=== PATIENT | female | born 1960 | race Native Hawaiian/Other Pacific Islander ===

== ENCOUNTER 2017-07-29 11:19 | Emergency (ER) | payer OTHER ==
[2017-07-29 12:00] VITALS: BP 184/99
--- NOTE | 2017-07-29 12:43 | ED Physician Documentation ---
PD HPI SKIN - Stated complaint Stated Complaint: RASH ON FACE - Chief complaint Chief Complaint: Wound - History obtained from History obtained from: Patient - History of Present Illness Timing - onset: Other (Type II diabetic with several days of mostly itchy and slightly painful rash that is centered over the left upper back. She has never had this before.) Review of Systems Constitutional: denies: Fever, Chills Nose: denies: Rhinorrhea / runny nose, Congestion Cardiac: reports: Reviewed and negative Respiratory: reports: Reviewed and negative PD PAST MEDICAL HISTORY - Present Medications Home Medications: Ambulatory Orders Medication Instructions Recorded Confirmed Acyclovir 800 mg PO 5XD 10 Days tablet 07/29/17 Atorvastatin Calcium 20 mg PO DAILY 07/29/17 07/29/17 Cephalexin [Keflex] 500 mg PO QID #40 capsule 07/29/17 Ferrous Sulfate 324 mg PO DAILY 07/29/17 07/29/17 Hydrochlorothiazide 12.5 mg PO DAILY 07/29/17 07/29/17 Lisinopril 20 mg PO DAILY 07/29/17 07/29/17 Sitagliptin Phos/Metformin HCl 1 tab PO DAILY 07/29/17 07/29/17 [Janumet 50-1,000 mg Tablet] hydrOXYzine PAMOATE [Vistaril] 25 mg PO Q6H PRN #15 capsule 07/29/17 - Allergies Allergies/Adverse Reactions: Allergies Allergy/AdvReac Type Severity Reaction Status Date / Time No Known Drug Allergies Allergy Verified 07/29/17 12:00 PD ED PE NORMAL - Vitals Vital signs reviewed: Yes - General General: Alert and oriented X 3, No acute distress - HEENT HEENT: PERRL, EOMI - Derm Derm: Other (She has what appears to be superinfected shingles over the superior part of the left scapula radiating down onto the top of the deltoid a bit and the neck. There is a more nonspecific rash on the face that looks like eczema.) - Neuro Neuro: Alert and oriented X 3, Normal speech Results - Vitals Vitals: Vital Signs - 24 hr 07/29/17 11:55 Temperature 36.7 C Heart Rate 95 Respiratory 18 Rate Blood Pressure 184/99 H O2 Saturation 95 Oxygen O2 Source Room air PD MEDICAL DECISION MAKING - ED course ED course: She has what appears to be superinfected shingles. Steroids are held given the diabetes. She does not need any pain medicine she says. Departure - Departure Disposition: 01 Home, Self Care Clinical Impression: Zoster Qualifiers: Herpes zoster complications: without complications Qualified Code(s): B02.9 - Zoster without complications Condition: Good Record reviewed to determine appropriate education?: Yes Instructions: ED Shingles Prescriptions: Acyclovir 800 mg PO 5XD 10 Days tablet Cephalexin [Keflex] 500 mg PO QID #40 capsule hydrOXYzine PAMOATE [Vistaril] 25 mg PO Q6H PRN #15 capsule PRN Reason: Itching Comments: Call your doctor to arrange a follow-up appointment, make the next available appointment. In the interim, return anytime if worse or if new symptoms develop. Your blood pressure was elevated today on check into the emergency department. This does not mean that you have hypertension, it is a common phenomenon to come to the emergency department and have elevated blood pressure. I recommend that you see your primary care physician within the week to have it rechecked when you are feeling better.
== END 2017-07-29 13:58 | disposition home or self-care (01) ==
LOC: ED 11:19
DX: B02.9 Zoster without complications (principal); R03.0 Elevated blood-pressure reading, without diagnosis of hypertension; E11.9 Type 2 diabetes mellitus without complications
CPT/HCPCS: 99283

== ENCOUNTER 2024-02-06 06:27 | Day surgery (SDC) | payer OTHER ==
[2024-02-06] MEDS: LACTATED RINGERS 1,000 ML IV ONE ×2 (06:37→08:32)
[2024-02-06] MEDS: PROPARACAINE 0.5% OPHTH DROPS 15 ML ONE (06:43)
[2024-02-06] MEDS: KETOROLAC 0.45% OPHTH DROPS ONE (06:43)
[2024-02-06] MEDS: PHENYLEPHRINE 2.5% OPHTH 2 ML DROPS ONE (06:44)
[2024-02-06] MEDS: CYCLOPENTOLATE 1% OPHTH DROPS 2 ML ONE (06:44)
[2024-02-06] MEDS ORDERED: MIDAZOLAM 2 MG/2 ML VIAL ONE (07:33)
[2024-02-06] MEDS ORDERED: TRIAMCIN/MOXIFLOX OPHTHALMIC 0.6 ML VIAL IO ONE (07:37)
[2024-02-06] MEDS ORDERED: BRIMONIDINE 0.2% OPHTH DROPS 5 ML ONE (07:37)
[2024-02-06] MEDS ORDERED: EPINEPHrine 1 MG/ML AMP ONE (07:37)
[2024-02-06] MEDS ORDERED: TIMOLOL 0.5% OPHTH DROPS ONE (07:37)
[2024-02-06] MEDS ORDERED: BSS/LIDOCAINE/EPINEPHRINE 1 ML VIAL ONE (07:38)
--- NOTE | 2024-02-06 07:54 | ANESTHESIA ---
Pre-Anesthesia VS, & Labs - Diagnosis L cataract - Procedure L phacoIOL Vital Signs: Temp Pulse Resp BP Pulse Ox O2 Flow Rate 36.1 C L 106 H 20 139/82 H 100 02/06/24 06:45 02/06/24 06:45 02/06/24 06:45 02/06/24 06:45 02/06/24 06:45 Height: 4 ft 11 in Weight (kg): 47.9 kg Body Mass Index: 21.3 BMI Classification: Normal - NPO >8 hours - Is Patient ?: No - Lab Results Current Lab Results: Laboratory Tests 02/06/24 07:04: POC Whole Bld Glucose 148 H Home Medications and Allergies Home Medications: Ambulatory Orders Apixaban [Eliquis] 1 tab PO DAILY 02/06/24 Aspirin EC [Ecotrin] 1 tab PO DAILY 02/06/24 Dulaglutide [Trulicity] 1 applic SQ OAW 02/06/24 amLODIPine [Norvasc] 10 mg PO DAILY 02/06/24 diltiaZEM [Cardizem] 1 tab PO BID 02/06/24 metFORMIN [Glucophage] 1,000 mg PO BIDWM 02/06/24 Atorvastatin Calcium 20 mg PO DAILY 07/29/17 lisinopriL [Lisinopril] 20 mg PO DAILY 07/29/17 Apixaban [Eliquis] 1 tab PO DAILY 02/06/24 Aspirin EC [Ecotrin] 1 tab PO DAILY 02/06/24 Dulaglutide [Trulicity] 1 applic SQ OAW 02/06/24 amLODIPine [Norvasc] 10 mg PO DAILY 02/06/24 diltiaZEM [Cardizem] 1 tab PO BID 02/06/24 metFORMIN [Glucophage] 1,000 mg PO BIDWM 02/06/24 Allergies/Adverse Reactions: Allergies Allergy/AdvReac Type Severity Reaction Status Date / Time No Known Drug Allergies Allergy Verified 07/29/17 12:00 Anes History & Medical History - Anesthetic History Anesthesia Complications: reports: No previous complications Family history of Anesthesia Complications: Denies Family history of Malignant Hyperthermia: Denies - Medical History Cardiovascular: reports: Hypertension, Atrial fibrillation Pulmonary: reports: None Gastrointestinal: reports: None Urinary: reports: None Musculoskeletal: reports: None Endocrine/Autoimmune: reports: Type 2 diabetes Skin: reports: None Smoking Status: Never smoker Psychosocial: reports: No issues indicated History of Cancer?: No - Surgical History Gynecologic: reports: section Exam General: Alert, Oriented x3, Cooperative Dental: WNL Mouth Openin Fingerbreadth Neck Mobility: Normal Mallampati classification: I Thyromental Distance: 4-6 cm Respiratory: Lungs clear Cardiovascular: Regular rate Plan Anesthesia Type: MAC Consent for Procedure(s) Verified and Reviewed: Yes Code Status: Attempt Resuscitation ASA classification: 3-Severe systemic disease Is this case an emergency?: No
[2024-02-06] MEDS ORDERED: fentaNYL 100 MCG/2 ML VIAL ONE (08:15)
[2024-02-06] MEDS: TIMOLOL 0.5% OPHTH DROPS OPTH ONE (08:24)
[2024-02-06] MEDS: EPINEPHrine 1 MG/ML AMP IR ONE (08:24)
[2024-02-06] MEDS: BRIMONIDINE 0.2% OPHTH DROPS 5 ML OPTH ONE (08:24)
[2024-02-06] MEDS: PROPARACAINE 0.5% OPHTH DROPS 15 ML EACHEYE ONE (08:25)
[2024-02-06] MEDS: BSS/LIDOCAINE/EPINEPHRINE 1 ML SYRINGE IO ONE (08:25)
[2024-02-06] MEDS: TRIAMCIN/MOXIFLOX OPHTHALMIC 0.6 ML VIAL IO ONE (08:25)
[2024-02-06] MEDS: VANCOMYCIN OPHTH (TOPICAL) 10 MG/ML SYRINGE TOP ONE (08:26)
--- NOTE | 2024-02-06 08:39 | OPERATIVE REPORT ---
Operative Report - Other Other Information/Narrative: Date of Surgery: 02/06/24 Preop Dx: Visually significant cataract left eye. This was the first cataract surgery. Postop Dx: Same Procedure: Phacoemulsification with posterior chamber intraocular lens implant left eye Surgeon: Dr. Jose Maria Pelaez Anesthesia: Monitored anesthesia care Complications: None Operative Indications: This is a 63-year-old F with progressive vision loss in the left eye due to 2+ nuclear sclerotic, 2+ posterior subcapsular, and vacuolar cataract. Best corrected visual acuity was 20/30 with glare to 20/300 vision in the left eye. Indications for surgery were: - Difficulty seeing street signs - Difficulty driving in low light or at night - Difficulty driving at night because of headlights from other vehicles - Difficulty with glare or bright lights in any situation The patient was consented at length concerning the risks and benefits of cataract surgery after which the patient expressed a desire to proceed with surgery. Operative Procedure: The patient was taken into OR#3 and placed under monitored anesthesia care. A surgical time-out was conducted confirming correct patient, correct procedure, and correct surgical site. The patient was given topical anesthesia and then prepped and draped in the usual sterile fashion. The eye was entered at the 6 and 3 oclock positions. Intracameral Shugarcaine was injected into the anterior chamber followed by a dispersive viscoelastic. A continuous-tear curvilinear capsulorhexis was performed. The nucleus was hydrodissected and phacoemulsified. The cortex was evacuated using automated infusion and aspiration. A cohesive viscoelastic was injected into the capsular bag and a 18.5 diopter intraocular lens was inserted into the bag. Infusion and aspiration were used to evacuate the viscoelastic materials from the eye. The wounds were hydrated and the eye inflated to physiologic pressure using balanced salt solution. Approximately 0.25ml of a mixture of triamcinolone and moxifloxacin was injected trans-sclerally into the vitreous in the inferotemporal quadrant using a 30 gauge cannula. An additional 0.25ml of a mixture of triamcinolone and moxifloxacin was injected subconjunctivally in the superior quadrant for infection and inflammation prophylaxis. Wound integrity was checked with Weck-Stephanie sponges. The patient was taken from the operating room in good condition and given post-op instructions.
[2024-02-06 09:02] VITALS: BP 130/78; O2SAT 99
--- NOTE | 2024-02-06 11:25 | ANESTHESIA POST OP EVALUATION ---
Anesthesia Post Eval - Post Anesthesia Eval Vitals: Last Vital Signs Temp 36.6 C 02/06/24 08:45 Pulse 95 02/06/24 08:45 Resp 16 02/06/24 08:45 BP 130/78 02/06/24 08:45 Pulse Ox 99 02/06/24 08:45 O2 Flow Rate CV Function Including HR & BP: Stable Pain Control: Satisfactory Nausea & Vomiting: Negative Mental Status: Baseline Respiratory Status: Airway Patent Hydration Status: Satisfactory Anesthesia Complications: None
== END 2024-02-06 06:28 | disposition home or self-care (01) ==
LOC: SDS 06:27
PROVIDERS: ATTEND Ophthalmology
DX: E11.36 Type 2 diabetes mellitus with diabetic cataract (principal); H25.812 Combined forms of age-related cataract, left eye; I48.91 Unspecified atrial fibrillation; Z79.85 Long-term (current) use of injectable non-insulin antidiabetic drugs; Z79.84 Long term (current) use of oral hypoglycemic drugs; Z79.01 Long term (current) use of anticoagulants
CPT/HCPCS: 66984; A9270; J3490; J7120

== ENCOUNTER 2024-04-02 07:37 | Day surgery (SDC) | payer OTHER ==
[~2024-04-02 07:37] MED LIST: CYCLOPENTOLATE 1% OPHTH DROPS 2 ML ONE; KETOROLAC TROMETHAMINE 0.5% OPHTH DROPS 5 ML ONE; PHENYLEPHRINE 2.5% OPHTH 2 ML DROPS ONE; PROPARACAINE 0.5% OPHTH DROPS 15 ML ONE
[2024-04-02] MEDS: PROPARACAINE 0.5% OPHTH DROPS 15 ML RIGHTEYE ONE ×2 (07:49→09:28)
[2024-04-02] MEDS: KETOROLAC TROMETHAMINE 0.5% OPHTH DROPS 5 ML RIGHTEYE ONE (07:49)
[2024-04-02] MEDS: CYCLOPENTOLATE 1% OPHTH DROPS 2 ML RIGHTEYE ONE (07:49)
[2024-04-02] MEDS: PHENYLEPHRINE 2.5% OPHTH 2 ML DROPS RIGHTEYE ONE (07:49)
[2024-04-02] MEDS: LACTATED RINGERS 1,000 ML IV ONE ×2 (08:10→10:15)
[2024-04-02] MEDS ORDERED: BRIMONIDINE 0.2% OPHTH DROPS 5 ML ONE (09:04)
[2024-04-02] MEDS ORDERED: TRIAMCIN/MOXIFLOX OPHTHALMIC 0.6 ML VIAL IO ONE (09:04)
[2024-04-02] MEDS ORDERED: EPINEPHrine 1 MG/ML AMP ONE (09:04)
[2024-04-02] MEDS ORDERED: TIMOLOL 0.5% OPHTH DROPS ONE (09:05)
[2024-04-02] MEDS ORDERED: BSS/LIDOCAINE/EPINEPHRINE 1 ML VIAL ONE (09:05)
--- NOTE | 2024-04-02 09:14 | ANESTHESIA ---
Pre-Anesthesia VS, & Labs - Diagnosis R cataract - Procedure R PhacoIOL Vital Signs: Temp Pulse Resp BP Pulse Ox O2 Flow Rate 36.2 C L 114 H 21 154/95 H 100 04/02/24 07:45 04/02/24 07:45 04/02/24 07:45 04/02/24 07:45 04/02/24 07:45 Height: 4 ft 11 in Weight (kg): 49.6 kg Body Mass Index: 22.1 BMI Classification: Normal - NPO >8 hours - Is Patient ?: No - Lab Results Current Lab Results: Laboratory Tests 04/02/24 08:04: POC Whole Bld Glucose 158 H Home Medications and Allergies Atorvastatin Calcium 20 mg PO DAILY 07/29/17 lisinopriL [Lisinopril] 20 mg PO DAILY 07/29/17 Apixaban [Eliquis] 1 tab PO DAILY 02/06/24 Aspirin EC [Ecotrin] 1 tab PO DAILY 02/06/24 Dulaglutide [Trulicity] 1 applic SQ OAW 02/06/24 amLODIPine [Norvasc] 10 mg PO DAILY 02/06/24 diltiaZEM [Cardizem] 1 tab PO BID 02/06/24 metFORMIN [Glucophage] 1,000 mg PO BIDWM 02/06/24 Allergies/Adverse Reactions: Allergies Allergy/AdvReac Type Severity Reaction Status Date / Time No Known Drug Allergies Allergy Verified 07/29/17 12:00 Anes History & Medical History - Anesthetic History Anesthesia Complications: reports: No previous complications Family history of Anesthesia Complications: Denies Family history of Malignant Hyperthermia: Denies - Medical History Cardiovascular: reports: Hypertension, Atrial fibrillation Pulmonary: reports: None Gastrointestinal: reports: None Urinary: reports: None Musculoskeletal: reports: None Endocrine/Autoimmune: reports: Type 2 diabetes Skin: reports: None Smoking Status: Never smoker - Surgical History Gynecologic: reports: section Exam General: Alert, Oriented x3, Cooperative Dental: WNL Mouth Openin Fingerbreadth Neck Mobility: Normal Mallampati classification: II Thyromental Distance: 4-6 cm Respiratory: Lungs clear Cardiovascular: Other (A fib) Plan Anesthesia Type: MAC Consent for Procedure(s) Verified and Reviewed: Yes Code Status: Attempt Resuscitation ASA classification: 2-Mild systemic disease Is this case an emergency?: No
[2024-04-02] MEDS ORDERED: MIDAZOLAM 2 MG/2 ML VIAL ONE (09:16)
[2024-04-02] MEDS ORDERED: fentaNYL 100 MCG/2 ML VIAL ONE (09:16)
[2024-04-02] MEDS: BRIMONIDINE 0.2% OPHTH DROPS 5 ML OPTH ONE (09:27)
[2024-04-02] MEDS: TRIAMCIN/MOXIFLOX OPHTHALMIC 0.6 ML VIAL IO ONE (09:28)
[2024-04-02] MEDS: TIMOLOL 0.5% OPHTH DROPS OPTH ONE (09:28)
[2024-04-02] MEDS: VANCOMYCIN OPHTH (TOPICAL) 10 MG/ML SYRINGE TOP ONE (09:28)
[2024-04-02] MEDS: BSS/LIDOCAINE/EPINEPHRINE 1 ML SYRINGE IO ONE (09:28)
[2024-04-02] MEDS: EPINEPHrine 1 MG/ML AMP IR ONE (09:28)
--- NOTE | 2024-04-02 10:02 | OPERATIVE REPORT ---
Operative Report - Other Other Information/Narrative: Date of Surgery: 04/02/24 Preop Dx: Visually significant cataract right eye. Cataract surgery was performed in the left eye on [id number]. Postop Dx: Same Procedure: Phacoemulsification with posterior chamber intraocular lens implant right eye Surgeon: Dr. Jose Maria Pelaez Anesthesia: Monitored anesthesia care Complications: Unplanned vitrectomy due to posterior capsule rupture. Operative Indications: This is a 63-year-old F with progressive vision loss in the right eye due to 2+ nuclear sclerotic and 2+ posterior subcapsular cataract. Best corrected visual acuity was 20/30 with glare to 20/300 vision in the right eye. Indications for surgery were: - Overall decrease in vision - Difficulty seeing words on a computer screen - Difficulty reading - Difficulty driving in low light or at night - Difficulty driving at night because of headlights from other vehicles - Difficulty with glare or bright lights in any situation The patient was consented at length concerning the risks and benefits of cataract surgery after which the patient expressed a desire to proceed with surgery. Operative Procedure: The patient was taken into OR#3 and placed under monitored anesthesia care. A surgical time-out was conducted confirming correct patient, correct procedure, and correct surgical site. The patient was given topical anesthesia and then prepped and draped in the usual sterile fashion. The eye was entered at the 6 and 3 oclock positions. Intracameral Shugarcaine was injected into the anterior chamber followed by a dispersive viscoelastic. A continuous-tear curvilinear capsulorhexis was performed. The nucleus was hydrodissected and phacoemulsified. However, toward the end of phaco there was an obvious, and large, rent in the posterior capsule. No vitreous presented to the wounds. A cohesive viscoelastic was injected into the sulcus and a 16.5 diopter 3-piece intraocular lens was inserted into the sulcus. At least one small piece of nucleus was observed to fall into the posterior chamber. After manipulating the IOL into the sulcus a small amount of vitreous presented to the phaco wound which was swept away with a cyclodialysis spatula. The wounds were hydrated and the eye inflated to physiologic pressure using balanced salt solution. Approximately 0.25ml of a mixture of triamcinolone and moxifloxacin was injected trans-sclerally into the vitreous in the inferotemporal quadrant using a 30 gauge cannula. An additional 0.25ml of a mixture of triamcinolone, moxifloxacin was injected subconjunctivally in the superior quadrant for infection and inflammation prophylaxis. Wound integrity was checked with Weck- Stephanie sponges. The patient was taken from the operating room in good condition, informed of the complication, and given post-op instructions.
[2024-04-02 10:19] VITALS: BP 116/79
[2024-04-02 10:41] VITALS: O2SAT 100
--- NOTE | 2024-04-02 11:09 | ANESTHESIA POST OP EVALUATION ---
Anesthesia Post Eval - Post Anesthesia Eval Vitals: Last Vital Signs Temp 36.1 C L 04/02/24 09:52 Pulse 109 H 04/02/24 10:20 Resp 16 04/02/24 10:20 BP 116/79 04/02/24 10:20 Pulse Ox 100 04/02/24 10:20 O2 Flow Rate CV Function Including HR & BP: Stable Pain Control: Satisfactory Nausea & Vomiting: Negative Mental Status: Baseline Respiratory Status: Airway Patent Hydration Status: Satisfactory Anesthesia Complications: None
== END 2024-04-02 07:38 | disposition home or self-care (01) ==
LOC: SDS 07:37
PROVIDERS: ATTEND Ophthalmology
DX: E11.36 Type 2 diabetes mellitus with diabetic cataract (principal); H25.811 Combined forms of age-related cataract, right eye; I10 Essential (primary) hypertension; I48.91 Unspecified atrial fibrillation; Z98.42 Cataract extraction status, left eye; Z79.01 Long term (current) use of anticoagulants
CPT/HCPCS: 66984; A9270; J3490; J7120; V2632